=== PATIENT | female | born 1965 | race Caucasian/White ===

== ENCOUNTER → 2017-07-04 | Outpatient (CLI) | payer BC ==
--- NOTE | 2017-07-04 19:49 | Diagnostic Imaging Report ---
PROCEDURE: US Thyroid. TECHNIQUE: Multiple real-time grayscale images were obtained of the thyroid in various projections. INDICATION: Right-sided lump. FINDINGS: The right thyroid lobe is 5.2 x 2.2 x 1.9 cm. The left lobe is 5.3 x 1.7 x 1.7 cm. There is a 1.7 x 1.9 x 1.2 cm right thyroid nodule and 2.5 x 1.5 x 1.7 cm left thyroid nodule, both demonstrate solid appearance with internal vascularity. IMPRESSION: There is thyroid enlargement with bilateral nodules measuring up to 2.5 cm on the left and 1.9 cm on the right side. These may relate to multinodular goiter. Evaluation with ultrasound-guided biopsy of the larger nodule in the left thyroid lobe is recommended. Dictated by: Dictated on workstation # [id number]
== END ==
LOC: RAD 14:36
PROVIDERS: ATTEND Nurse Practitioner Family
DX: E04.9 Nontoxic goiter, unspecified (principal)
CPT/HCPCS: 76536

== ENCOUNTER → 2018-08-11 | Outpatient (CLI) | payer BC ==
--- NOTE | 2018-08-11 17:52 | Diagnostic Imaging Report ---
PROCEDURE: US Thyroid. TECHNIQUE: Multiple real-time grayscale images were obtained of the thyroid in various projections. INDICATION: Thyroid nodules. FINDINGS: The prior thyroid ultrasound exam of 07/04/2017 noted generalized enlargement of the thyroid gland with bilateral nodules involving each lobe. The largest nodule on the right measured 2.5 cm while the large nodule on the left was estimated to be 1.9 cm. An ultrasound-guided biopsy of the larger nodule was recommended. On this study, the nodules within both lobes are again identified and do not seem to have changed significantly. The nodule on the right measures 1.7 x 1.9 x 1.2 cm while the left-sided nodule is estimated to be 1.7 x 2.5 x 1.5 cm. As noted on the prior exam, there is vascularity associated with each nodule. The thyroid gland itself is enlarged with the right lobe measuring 5.6 x 2.4 x 1.7 cm and left lobe estimated to be 5.4 x 2.1 x 1.8 cm (normal gland size 4-5 x 2 x 2 CM or less). IMPRESSION: The overall appearance of the thyroid gland has not changed adversely since the prior exam. The thyroid gland is enlarged and there are two solid nodules in each lobe. The stability of these nodules over a one-year period would suggest that they are not related to an aggressive process. If a tissue diagnosis is desired, then ultrasound-guided biopsy could be performed. Dictated by: Dictated on workstation # [id number]
== END ==
LOC: RAD 15:58
PROVIDERS: ATTEND Internal Medicine Endocrinology, Diabetes & Metabolism
DX: E04.2 Nontoxic multinodular goiter (principal)
CPT/HCPCS: 76536

== ENCOUNTER → 2022-01-30 | Outpatient (RCR) | payer OTHER | END | disposition home or self-care (01) | PROVIDERS: ATTEND Family Medicine | DX: S93.401D Sprain of unspecified ligament of right ankle, subsequent encounter (principal); S63.601D Unspecified sprain of right thumb, subsequent encounter; S80.211A Abrasion, right knee, initial encounter; J02.8 Acute pharyngitis due to other specified organisms; Y92.63 Factory as the place of occurrence of the external cause; R59.0 Localized enlarged lymph nodes; Z98.890 Other specified postprocedural states; S93.401A Sprain of unspecified ligament of right ankle, initial encounter; B35.1 Tinea unguium; S63.501A Unspecified sprain of right wrist, initial encounter ==

== ENCOUNTER 2022-02-08 13:39 | Outpatient (RCR) | payer OTHER | END 2022-03-01 | disposition home or self-care (01) | PROVIDERS: ATTEND Family Medicine | DX: S93.401D Sprain of unspecified ligament of right ankle, subsequent encounter (principal); S63.501D Unspecified sprain of right wrist, subsequent encounter; S80.211D Abrasion, right knee, subsequent encounter; J02.8 Acute pharyngitis due to other specified organisms; B35.1 Tinea unguium; R59.0 Localized enlarged lymph nodes; Z98.890 Other specified postprocedural states; W19.XXXD Unspecified fall, subsequent encounter; Y92.63 Factory as the place of occurrence of the external cause ==

== ENCOUNTER → 2022-02-23 | Outpatient (CLI) | payer OTHER ==
--- NOTE | 2022-02-23 13:35 | Diagnostic Imaging Report ---
Exam: MRI right hand and thumb without contrast. Date: February 23, 2022. Indication: 56-year-old female, right thumb and second finger pain. Comparison: None available. Technique: Multiple noncontrast MRI sequences of the right thumb and hand for targeted evaluation of the first and second fingers were obtained. Findings: The radial and ulnar collateral ligaments are intact at the level of the first metacarpophalangeal joint. The first digit extensor tendon apparatus is intact as well as the additional imaged extensor tendons. The flexor tendons are intact. There is no evidence to suggest a helga injury. There is a ganglion cyst near the dorsal aspect of the first metacarpal phalangeal joint measuring approximately 9 x 3 x 5 mm in size. There is arthritis at the first carpometacarpal articulation with prominent marrow edema in the trapezium and less prominent degenerative related marrow signal changes in the first metacarpal base. The additional imaged joint spaces appear well-preserved. There is no acute fracture or bone contusion. There is no subluxation or dislocation. Impression: 1. Advanced arthritis of the first carpometacarpal articulation. 2. Dorsal ganglion cyst near the level of the first metacarpophalangeal joint. 3. Intact ligaments and tendons. 4. No acute fracture or bone contusion. Dictated by: Dictated on workstation # [id number]
== END ==
LOC: RAD 12:30
PROVIDERS: ATTEND Family Medicine
DX: M18.11 Unilateral primary osteoarthritis of first carpometacarpal joint, right hand (principal)
CPT/HCPCS: 73218